=== PATIENT | female | born 1990 | race Caucasian/White ===

== ENCOUNTER 2024-12-23 15:07 | Emergency (ER) | payer BC, SELFPAY ==
[2024-12-23 17:58] VITALS: BP 148/86
--- NOTE | 2024-12-23 18:41 | ED.GENMED ---
History of Present Illness
General
Chief Complaint: Numbness
Time Seen by Provider: 12/23/24 17:33
History of Present Illness
History of Present Illness:
34-year-old female presents the emergency department for evaluation of diffuse tingling/paresthesias that began today. She states she woke up with tingling sensation to the left side of the neck into the face associated with a 'severe' headache.
She took ibuprofen and the headache improved. Gradually throughout the day the tingling progressed to involve the entire body and face. Symptoms have not resolved. She contacted her primary care physician about this who started her on a course of
steroids for presumed cervical radiculopathy, she took the steroids when around to the hospital. Currently she reports continued tingling numbness symptoms, denies any chest pain or shortness of breath. No vision changes or speech difficulty at
this time.
Review of Systems
Review of Systems
Allergies reviewed?: Yes
All Other Systems: ROS reviewed and negative except as documented in HPI and ROS
Phy Exam
Physical Exam
Physical Exam:
GEN: Well appearing, NAD, WDWN
HEENT: Oral mucosa moist, no scleral icterus, no nasal congestion
Cardiac: Regular rate
Lung: No respiratory distress, no tachypnea
MSK: No gross deformity or injuries
Skin: Good color, no pallor or jaundice, no rashes
Neuro: AO x3; CN II-XII grossly intact. BUE strength 5/5 in all zacarias, sensation intact and symmetric. BLE strength 5/5 in all zacarias, sensation intact and symmetric
Psych: Calm, cooperative
Course
Orders/Labs/Results
Orders:
Orders
12/23/24 18:39
Electrocardiogram (*1) Urgent
Reason for Study: TIA/Stroke
CT Head & Neck Angio W/wo IV Urgent
Comment:
Reason For Exam: severe headache/neck tingling
EKG- Treatment ONCE
Test Result ONCE
12/23/24 18:56
Complete Blood Count/With Diff Urgent
Comprehensive Metabolic Panel Urgent
HCG, Serum Qualitative Screen Urgent
Magnesium Urgent
Abnormal Lab Results
12/23/24
18:56
WBC 11.1 H 10^3/uL
(4.8-10.8)
RBC 4.15 L 10^6/uL
(4.20-5.40)
Hct 36.7 L %
(37.0-47.0)
Absolute Neuts (auto) 10.4 H 10^3/uL
(1.4-6.5)
Absolute Lymphs (auto) 0.6 L 10^3/uL
(1.2-3.4)
Neutrophils % 93.3 H %
(42.2-75.2)
Lymphocytes % 5.7 L %
(20.5-51.1)
Monocytes % 0.4 L %
(1.7-9.3)
Glucose 125 H mg/dl
(70-99)
Albumin 5.2 H g/dl
(3.5-5.0)
12/23/24 18:56
12/23/24 18:56
Vital Signs
Initial and Last Documented VS:
Initial Vital Signs
Pulse BP Pulse Ox
110 148/86 98
12/23/24 17:58 12/23/24 17:58 12/23/24 17:58
Last Documented Vital Signs
Pulse Resp BP Pulse Ox
85 18 120/86 98
12/23/24 22:00 12/23/24 22:00 12/23/24 22:00 12/23/24 22:00
MDM/Problems Addressed
MDM/Problems Addressed:
Unclear etiology to the patient's widespread paresthesias. Certainly underlying degenerative neurologic condition is considered however she has no functional weakness that would warrant admission or urgent MRI. Due to the patient's report of
frequent headaches with unilateral neurologic symptoms a CT angiogram was obtained to evaluate for vertebral artery dissection or carotid artery disease and this was reassuring. Patient's workup was otherwise unremarkable. Encourage close primary
care follow-up
*Critical Care Note
Total Time (30-74mins, 75-104mins- exclusive of procedures): Not Applicable
ED Attending Note
-
Portions of this chart may have been created with voice recognition software.� Occasional wrong word or��sound alike� substitutions may have occurred due to the inherent limitations of voice recognition software.
Discharge Plan
Departure
Patient Disposition: Home (Routine Discharge)
Date of Disposition: 12/23/24
Time of Disposition: :28
Patient with high blood pressure during this ER visit?: No
Discharge Problem:
Paresthesia
Instructions: Paresthesia (DC)
Referrals:
Kiera Holguin DO [Family Provider, Internal Medicine]
Activity Restrictions/Additional Instructions:
Discussed a outpatient MRI of your cervical spine with your primary care physician
Interventions
Interventions:
*Risk Screen - Suicide Last Done: 12/23/24 18:26
*General Assessment Last Done: 12/23/24 18:27
*Neglect/Abuse Screening Last Done: 12/23/24 18:26
*ED- Fall Risk Assessment Last Done: 12/23/24 18:27
*Nursing Disposition Last Done: 12/23/24 22:38
ED- Neurological Assessment Last Done: 12/23/24 17:34
Discharge Date and Time
Discharge Date/Time: 12/23/24 22:39
Print Language: SETSWANA
--- NOTE | 2024-12-23 19:15 | DOWNTIME ---
There was a [employer] Downtime on 12/23/2024 from 1230 to 12/23/2024 at 1550. Downtime documentation of patient's care, including medication administrations, has been reconciled in the electronic record per guidelines. Refer to the
patient's paper chart under the miscellaneous tab to see printed paper medication records and downtime forms.
[2024-12-23 19:18] LABS: % Basophils 0.3 % (0-2); % Immature Granulocytes 0.3 % (0-0.5); % Lymphocytes 5.7 % (20.5-51.1); % Monocytes 0.4 % (1.7-9.3); % Neutrophils 93.3 % (42.2-75.2); Absolute Lymphocytes 0.6 10^3/uL (1.2-3.4); Absolute Monocytes 0.1 10^3/uL (0.1-0.6); Absolute Neutrophils 10.4 10^3/uL (1.4-6.5); Hematocrit 36.7 % (37.0-47.0); Hemoglobin 12.7 g/dL (12.0-16.0); Mean Corp Hgb Conc. 34.6 g/dL (33.0-37.0); Mean Corpuscular Hgb 30.6 pg (27.0-31.0); Mean Corpuscular Volume 88.4 fL (81.0-99.0); Mean Platelet Volume 9.3 fL (7.4-10.4); Nucleated Red Blood Cells % 0 %; Platelet Count 261 10^3/uL (130-400); Red Blood Cell Count 4.15 10^6/uL (4.20-5.40); Red Cell Dist. Width 11.7 % (11.5-14.5); White Blood Cell Count 11.1 10^3/uL (4.8-10.8)
[2024-12-23 19:26] LABS: ALT (SGPT) 14 U/L (0-35); AST (SGOT) 23 U/L (14-36); Albumin 5.2 g/dl (3.5-5.0); Alkaline Phosphatase 62 U/L (38-126); Blood Urea Nitrogen 10 mg/dl (7-17); Calcium 10.2 mg/dl (8.4-10.2); Carbon Dioxide 25 mmol/L (22-30); Chloride 106 mmol/L (98-107); Glucose 125 mg/dl (70-99); Potassium 4.2 mmol/L (3.5-5.1); Sodium 141 mmol/L (135-145); Total Bilirubin 0.6 mg/dl (0.2-1.3); eGFR > 60.00
[2024-12-23 19:29] LABS: HCG, Serum Qualitative Screen Negative
[2024-12-23 22:00] VITALS: BP 120/86
== END 2024-12-23 22:39 | disposition home or self-care (01) ==
LOC: EMR 15:07
PROVIDERS: Physician Assistant; EMERGENCY PHYSICIAN Emergency Medicine; FAMILY PHYSICIAN Internal Medicine
DX: R20.2 Paresthesia of skin (principal); R51.9 Headache, unspecified
CPT/HCPCS: 99284; 70496; 70498; 80053; 83735; 84703; 85025; Q9967

== ENCOUNTER 2024-12-28 00:21 | Emergency (ER) | payer BC, SELFPAY ==
[2024-12-28] VITALS (9 sets, daily range): BP systolic 112–167; BP diastolic 79–119; PULSE 84–110
--- NOTE | 2024-12-28 01:16 | ED.GENMED ---
History of Present Illness
General
Chief Complaint: Numbness
Source: patient, spouse, previous radiology exam (Unremarkable CT/CTA head and neck December 23) and previous hospital records (ED visit December 23 for similar complaint)
Exam Limitations: none
Time Seen by Provider: 12/28/24 00:42
Nursing documentation reviewed up to this point in time: agreed with
History of Present Illness
History of Present Illness:
This is a 34-year-old woman with no significant past medical history save for sinus issues for which she follows with ENT. She was treated for sinusitis approximately 3 weeks ago with a course of antibiotics, Medrol Dosepak and steroid nasal spray.
She awoke 4 days ago with some pain left lateral neck, left posterior shoulder accompanied with paresthesias left facial region. She does admit to intermittent left lateral neck, left posterior shoulder discomfort and had undergone physical therapy
to her cervical region a year or 2 ago. Left facial paresthesia then seem to worsen then become generalized to her entire body. No associated weakness nor numbness.
She called her primary care physician that morning and was placed on a Medrol Dosepak for suspected cervical radiculopathy.
She was evaluated in this ED on that day, December 23. Unremarkable physical exam, no focal neurodeficits. CT/CTA of the head unremarkable. Unremarkable laboratory studies. Discharged to home.
Patient states she took 2 days of the Medrol Dosepak but then discontinued due to persistent symptoms, seem to be worsening, most noted when she first wakes up in the morning and seems to improve throughout the day. She admits to feeling quite
anxious, describes a sense of 'out of body.' Paresthesias seem to be more pronounced to her legs now but no accompanying weakness. She notes some vision difficulty where she feels that her vision seems to be 'pulsing in and out' but no loss of
vision, she denies dizziness, no palpitations, no lightheadedness. She has not had a fever but admits to occasional chills. She has not had a rash. No headache.
Appetite has been fair, no nausea nor vomiting. She has been passing some loose stools perhaps 2 to 3/day, no hematochezia. No abdominal pain. No dysuria no urgency nor hematuria. No saddle anesthesia, no back pain nor posterior neck pain.
She takes no medicines on a daily basis other than steroid nasal spray, occasional antihistamine, occasional ibuprofen.
Last menstrual period 2 weeks ago, normal and on time.
Patient admits that she has been 'googling her symptoms' and she is concerned that symptoms are related to steroids�specifically oral steroids combined with nasal steroids.
She has been able to complete her ADLs, has been able to care for her children, was able to go for a walk with her mother yesterday. She has had no falls nor stumbling.
Patient admits that she is currently asymptomatic but is worried that symptoms were returned upon waking this morning.
Past History
Past History
ED Past Medical History: Other (Seasonal allergies, sinusitis)
ED Past Surgical History: Other (Sinus surgery, adenoidectomy)
Social History
Tobacco: Non-smoker
Alcohol: None
Drug: None
Personal:
Living: with family
Employment: Employed
Family History
Family History: Other (Noncontributory)
Phy Exam
Physical Exam
Physical Exam:
GENERAL: This is a 34-year-old woman who appears her stated age, bright and alert, pleasant, easily communicative and in no acute distress. is accompanying.
EYE: pupils equal and reactive. Extraocular muscles intact. Anicteric
NECK: Supple, nontender, no meningismus, no significant adenopathy. Full range of motion without difficulty nor pain.
ENT: posterior pharynx is clear, oral mucosa is moist. TM clear b/l, nares patent.
CARDIAC: Regular rate and rhythm. no murmur.
LUNGS: Clear breath sounds bilaterally, no acute respiratory distress, no wheezes/rales/rhonchi
ABDOMEN: Soft, nondistended, without focal tenderness, no r/g, no cvat. normoactive BS.
NEUROLOGICAL: Alert and oriented x3, no focal neuro deficits. Motor strength is 5/5 bilaterally. Gross sensation is intact. No dysmetria. Gait is english and steady.
SKIN: Warm and dry, normal color, skin intact. No rash.
MUSCULOSKELETAL: No C/C/E. peripheral pulses are full and equal b/l. No palpable tenderness.
PSYCH: Normal and appropriate interaction.
Course
Orders/Labs/Results
Orders:
Orders
12/28/24 01:16
Orthostatic VS- Treatment ONCE
12/28/24 01:23
Basic Metabolic Panel Urgent
CPK [Creatine Phosphokinase] Urgent
Complete Blood Count/With Diff Urgent
Cortisol, Random Urgent
TSH Reflex To Free T4 Urgent
Abnormal Lab Results
12/28/24
01:23
RBC 3.97 L 10^6/uL
(4.20-5.40)
Hct 34.9 L %
(37.0-47.0)
MCH 31.2 H pg
(27.0-31.0)
Absolute Neuts (auto) 7.5 H 10^3/uL
(1.4-6.5)
Lymphocytes % 18.2 L %
(20.5-51.1)
Glucose 119 H mg/dl
(70-99)
12/28/24 01:23
12/28/24 01:23
Vital Signs
Initial and Last Documented VS:
Initial Vital Signs
Temp Pulse Resp BP Pulse Ox
98.7 F 95 18 167/119 100
12/28/24 00:23 12/28/24 00:23 12/28/24 00:23 12/28/24 00:23 12/28/24 00:23
Last Documented Vital Signs
Temp Pulse Resp BP Pulse Ox
98.7 F 81 17 126/85 94
12/28/24 00:23 12/28/24 04:09 12/28/24 04:09 12/28/24 04:09 12/28/24 04:00
MDM/Problems Addressed
Differential Diagnosis Includes:
Unclear etiology as to widespread, intermittent paresthesias. Patient may have an element of cervical radiculopathy however no associated weakness nor even definitive numbness, generalized paresthesias are overall not consistent with cervical
radiculopathy.
Oral steroids can certainly have side effect of anxiety. Doubtful that symptoms are steroid withdrawal related especially as patient had not been maintained on lengthy course of steroids.
Could consider thyroid dysfunction, and will check random cortisol as well.
Symptoms are not consistent with orthostasis but will check orthostatic vital signs for completeness sake.
Overall symptoms could certainly be anxiety/stress related but this is diagnosis of exclusion.
No focal neuro deficits on exam and with unremarkable CT/CTA of the head just 4 days ago, no indication to repeat.
*Pulse Oximetry
Patient hypoxic: no
*Boarding House Manager Interpretation
Rate: normal
Interpretation: normal
Rhythm: sinus
*Critical Care Note
Total Time (30-74mins, 75-104mins- exclusive of procedures): Not Applicable
Update Note
Update Note:
02:40
Patient resting comfortably. Currently remains asymptomatic.
Labs are unremarkable.
Monitor showing normal sinus rhythm without ectopy.
Vital signs within normal limits.
Orthostatic vital signs negative for change in blood pressure but heart rate trends up. Patient asymptomatic with standing.
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
Will continue to observe in the ED, continue campus monitor as well as pulse ox, hopefully she will be able to sleep. We will wake her up this morning and reassess.
06:20
We have monitored patient for a number of hours.
She is intermittently quite anxious when the campus monitor alarms but there has been no arrhythmia.
Pulse ox remains 100% on room air.
She continues to deny paresthesias, deny weakness. Denied pain. She is now fixated on her campus monitor and intermittent beeping which she has been reassured is intermittent false alarms, artifact. Nonetheless she is not convinced and is now
worried that she is having an arrhythmia however she has had no complaints of palpitations and again campus monitor continues to show normal sinus rhythm without ectopy.
I highly suspect anxiety as cause for her symptoms.
She continues to have no neurologic signs or symptoms.
Will discharge to home and patient has been urged to follow-up with her primary care physician for further evaluation.
ED Attending Note
-
Portions of this chart may have been created with voice recognition software.� Occasional wrong word or��sound alike� substitutions may have occurred due to the inherent limitations of voice recognition software.
Discharge Plan
Departure
Patient Disposition: Home (Routine Discharge)
Date of Disposition: 12/28/24
Time of Disposition: 06:18
Patient with high blood pressure during this ER visit?: No
Condition: Good
Discharge Problem:
Paresthesia, Neurosis, anxiety, panic type
Instructions: Paresthesia (DC), Anxiety in adults - ED discharge instructions
Referrals:
Kiera Holguin DO [Family Provider, Internal Medicine] - Follow up in 2-3 days
Interventions
Interventions:
*Risk Screen - Suicide Last Done: 12/28/24 00:23
*General Assessment Last Done: 12/28/24 00:23
*Neglect/Abuse Screening Last Done: 12/28/24 00:23
*ED- Fall Risk Assessment Last Done: 12/28/24 00:54
ED- Neurological Assessment Last Done: 12/28/24 00:54
Discharge Date and Time
Print Language: DIVEHI
[2024-12-28 01:37] LABS: % Basophils 0.4 % (0-2); % Eosinophils 0.4 % (0-6); % Immature Granulocytes 0.3 % (0-0.5); % Lymphocytes 18.2 % (20.5-51.1); % Monocytes 5.5 % (1.7-9.3); % Neutrophils 75.2 % (42.2-75.2); Absolute Lymphocytes 1.8 10^3/uL (1.2-3.4); Absolute Monocytes 0.5 10^3/uL (0.1-0.6); Absolute Neutrophils 7.5 10^3/uL (1.4-6.5); Hematocrit 34.9 % (37.0-47.0); Hemoglobin 12.4 g/dL (12.0-16.0); Mean Corp Hgb Conc. 35.5 g/dL (33.0-37.0); Mean Corpuscular Hgb 31.2 pg (27.0-31.0); Mean Corpuscular Volume 87.9 fL (81.0-99.0); Mean Platelet Volume 9.2 fL (7.4-10.4); Nucleated Red Blood Cells % 0 %; Platelet Count 244 10^3/uL (130-400); Red Blood Cell Count 3.97 10^6/uL (4.20-5.40); Red Cell Dist. Width 11.5 % (11.5-14.5); White Blood Cell Count 9.9 10^3/uL (4.8-10.8)
[2024-12-28 01:53] LABS: Blood Urea Nitrogen 12 mg/dl (7-17); Calcium 9.8 mg/dl (8.4-10.2); Carbon Dioxide 28 mmol/L (22-30); Chloride 106 mmol/L (98-107); Creatine Phosphokinase 31 U/L (30-135); Estimated Creatinine Clearance 102 ml/min; Glucose 119 mg/dl (70-99); Potassium 3.5 mmol/L (3.5-5.1); Sodium 140 mmol/L (135-145); eGFR > 60.00
[2024-12-28 02:24] LABS: Cortisol, Random 11.1 ug/dl; TSH Reflex To Free T4 0.93 uIU/ml (0.47-4.68)
== END 2024-12-28 06:37 | disposition home or self-care (01) ==
LOC: EMR 00:21
PROVIDERS: EMERGENCY PHYSICIAN Emergency Medicine; FAMILY PHYSICIAN Internal Medicine
DX: R20.0 Anesthesia of skin (principal); R20.2 Paresthesia of skin; F41.9 Anxiety disorder, unspecified; F48.9 Nonpsychotic mental disorder, unspecified; F41.0 Panic disorder [episodic paroxysmal anxiety]
CPT/HCPCS: 99283; 80048; 82533; 82550; 84443; 85025

== ENCOUNTER → 2025-01-13 12:16 | Outpatient (REF) | payer BC, SELFPAY | LOC: HWRAD 12:16 | PROVIDERS: ATTENDING PHYSICIAN Internal Medicine | DX: D35.00 Benign neoplasm of unspecified adrenal gland (principal) | CPT/HCPCS: 76775 ==

== ENCOUNTER 2025-04-09 19:52 | Emergency (ER) | payer BC, SELFPAY ==
[2025-04-09 19:57] VITALS: BP 169/102
[2025-04-09 20:22] LABS: Hematocrit 38.3 % (37.0-47.0); Hemoglobin 13.7 g/dL (12.0-16.0); Mean Corp Hgb Conc. 35.8 g/dL (33.0-37.0); Mean Corpuscular Volume 86.3 fL (81.0-99.0); Nucleated Red Blood Cells % 0 %; Platelet Count 285 10^3/uL (130-400); Red Cell Dist. Width 10.9 % (11.5-14.5)
[2025-04-09 20:41] LABS: ALT (SGPT) 15 U/L (0-35); AST (SGOT) 24 U/L (14-36); Albumin 5.3 g/dl (3.5-5.0); Alkaline Phosphatase 59 U/L (38-126); Blood Urea Nitrogen 17 mg/dl (7-17); Calcium 10.5 mg/dl (8.4-10.2); Carbon Dioxide 24 mmol/L (22-30); Chloride 102 mmol/L (98-107); Glucose 184 mg/dl (70-99); Potassium 4.5 mmol/L (3.5-5.1); Sodium 135 mmol/L (135-145); Total Protein 8.2 g/dl (6.3-8.2); eGFR > 60.00
[2025-04-09 23:12] VITALS: BP 159/100
[2025-04-09 23:18] VITALS: BP 133/103
[2025-04-09 23:35] VITALS: BP 143/98; BMI 20.4
[2025-04-10] VITALS: BP 131/88
--- NOTE | 2025-04-10 00:56 | ED.GENMED ---
History of Present Illness
General
Chief Complaint: Heart Rate Problem
Source: patient
Time Seen by Provider: 04/10/25 00:36
History of Present Illness
History of Present Illness:
34-year-old female presents to the emergency room complaining of feeling like her heart was racing and having a near syncopal event at home. Patient has been feeling unwell for the past several weeks. Symptoms primarily were dizziness/vertigo at
times. She feels like she has increased anxiety which is something she never experienced before. She feels like her heart is racing at times. She was evaluated by her ENT and that her primary care doctor. This workup indicated that her TSH was
somewhat low. She has an appointment with an cad designer next week. This evening while watching her children she developed significant rapid heart rate and felt like she was dizzy and might pass out. She was able to make it into the house and
collapsed on the couch. No complete loss of consciousness. This prompted her to go to an urgent care where she was told her heart rate was in the 140s. She believes they did an EKG but did not provide it to her. Upon arrival here her heart rate
was 117.
Past History
Past History
ED Past Medical History: Other (Seasonal allergies, sinusitis)
ED Past Surgical History: Other (Sinus surgery, adenoidectomy)
Social History
Tobacco: Non-smoker
Alcohol: None
Drug: None
Personal:
Living: with family
Employment: Employed
Family History
Family History: Other (Noncontributory)
Phy Exam
Physical Exam
Physical Exam:
General: Awake, Alert, Oriented X3. No acute distress.
Vitals: unremarkable
Head: Atraumatic
Eyes: Pupils equal, EOMI
Throat: Airway intact, no exudates
Neck: Trachea midline, no thyromegaly noted on exam
Lungs: Clear and equal b/l
Heart: Regular rate, no murmurs
Abd: Soft, Nontender, No pulsatile mass
Neuro: Nonfocal
Skin: Warm, dry, no rash
Extremities: pulses equal b/l, no edema
Course
Orders/Labs/Results
Orders:
Orders
04/09/25 20:02
EKG [Electrocardiogram (*1)] Urgent
Reason for Study: Tachycardia
EKG- Treatment ONCE
04/09/25 20:11
Complete Blood Count/With Diff Urgent
Comprehensive Metabolic Panel Urgent
Free T4 Urgent
TSH Reflex To Free T4 Urgent
Abnormal Lab Results
04/09/25
20:11
RDW 10.9 L %
(11.5-14.5)
Absolute Neuts (auto) 8.3 H 10^3/uL
(1.4-6.5)
Absolute Lymphs (auto) 0.8 L 10^3/uL
(1.2-3.4)
Neutrophils % 88.3 H %
(42.2-75.2)
Lymphocytes % 8.2 L %
(20.5-51.1)
Glucose 184 H mg/dl
(70-99)
Calcium 10.5 H mg/dl
(8.4-10.2)
Albumin 5.3 H g/dl
(3.5-5.0)
TSH (Reflex) 0.31 L uIU/ml
(0.47-4.68)
04/09/25 20:11
04/09/25 20:11
Vital Signs
Initial and Last Documented VS:
Initial Vital Signs
Temp Pulse Resp BP Pulse Ox
98.6 F 117 16 169/102 99
04/09/25 19:57 04/09/25 19:57 04/09/25 19:57 04/09/25 19:57 04/09/25 19:57
Last Documented Vital Signs
Temp Pulse Resp BP Pulse Ox
98.0 F 79 16 131/88 99
04/09/25 23:12 04/10/25 00:30 04/10/25 00:30 04/10/25 00:00 04/10/25 00:30
MDM/Problems Addressed
Differential Diagnosis Includes:
Hypothyroidism, SVT, atrial fibrillation
MDM/Problems Addressed:
Patient presents after having what sounds again near syncopal episode and palpitations. EKG here is essentially normal. Labs show a low TSH of 0.31. Free T4 is normal. Possible that the patient has subclinical hyperthyroidism. She was started
on a Medrol Dosepak recently for 'fluid in her years'. This accounts for increased glucose. I doubt symptoms today are related to the steroid. Her constellation of symptoms that she has been experiencing over the past several weeks are suggestive
of possibly hyperthyroidism. There is no indication for hospitalization or evidence of any unstable process at this time. Will start her on low-dose propranolol until she can follow-up with endocrinology to see if this helps obliterate some of her
symptoms.
*Pulse Oximetry
SaO2: 99
Oxygen Mode of Delivery: Room air
Patient hypoxic: no
*EKG
Interpreted by ED Provider?: Yes
Interpretation: normal
Heart Rate: 87
Rate: normal
Rhythm: sinus
[place]: normal axis
Interval: normal interval
QRS Pattern: normal QRS
Ischemia: no ischemia
*Network Mgr Interpretation
Rate: normal
Interpretation: normal
Rhythm: sinus
*Critical Care Note
Total Time (30-74mins, 75-104mins- exclusive of procedures): Not Applicable
ED Attending Note
-
Portions of this chart may have been created with voice recognition software.� Occasional wrong word or��sound alike� substitutions may have occurred due to the inherent limitations of voice recognition software.
Discharge Plan
Departure
Patient Disposition: Home (Routine Discharge)
Date of Disposition: 04/10/25
Time of Disposition: 01:15
Patient with high blood pressure during this ER visit?: No
Condition: Good
Discharge Problem:
Near syncope, Heart palpitations, Low TSH level
Instructions: Palpitations (DC), BLOOD PRESSURE
Prescriptions:
New
propranolol 10 mg tablet
10 mg PO BID Qty: 20 0RF
Referrals:
Katie Bullard MD [Family Provider, Internal Medicine]
Activity Restrictions/Additional Instructions:
Take propranolol twice a day for at least the next couple of days to see if it helps with your potential hyperthyroid symptoms. Follow up with endocrinology as scheduled
Interventions
Interventions:
*Risk Screen - Suicide Last Done: 04/09/25 19:57
*General Assessment Last Done: 04/09/25 23:38
*Neglect/Abuse Screening Last Done: 04/09/25 19:57
*ED- Fall Risk Assessment Last Done: 04/09/25 23:38
*ED COVID-19 Vaccine History Last Done: 04/09/25 23:38
ED- Cardiac Assessment Last Done: 04/09/25 23:43
ED- Pulmonary Assessment Last Done: 04/09/25 23:43
Discharge Date and Time
Print Language: BULGARIAN
[2025-04-10 01:00] VITALS: BP 146/94
== END 2025-04-10 01:30 | disposition home or self-care (01) ==
LOC: EMR 19:52
PROVIDERS: Emergency Medicine; EMERGENCY PHYSICIAN Emergency Medicine; FAMILY PHYSICIAN Internal Medicine
DX: R00.2 Palpitations (principal); R55 Syncope and collapse; R94.6 Abnormal results of thyroid function studies
CPT/HCPCS: 99283; 80053; 84439; 84443; 85025; 93005

== ENCOUNTER → 2025-05-18 17:58 | Outpatient (REF) | payer BC, SELFPAY | LOC: MRI 3T 17:58 | PROVIDERS: ATTENDING PHYSICIAN Psychiatry & Neurology Neurology | DX: R42 Dizziness and giddiness (principal); M54.2 Cervicalgia | CPT/HCPCS: 70553; 72156; A9575 ==

== ENCOUNTER → 2025-06-23 08:49 | Outpatient (REF) | payer BC, SELFPAY | LOC: HWRAD 08:49 | PROVIDERS: ATTENDING PHYSICIAN Otolaryngology; FAMILY PHYSICIAN Internal Medicine | DX: J32.0 Chronic maxillary sinusitis (principal) | CPT/HCPCS: 70486 ==